=== PATIENT | male | born 1960 | race African-American/Black ===

== ENCOUNTER 2021-08-18 10:01 | Inpatient (IN) | payer MEDICAID ==
[~2021-08-18] VITALS: Ht 190.5 cm; Wt 72.8 kg
[2021-08-18] MEDS ORDERED: MORPHINE SULFATE 4 MG/ML CPJ (NOT FOR IM USE) IV STA (11:09)
[2021-08-18] MEDS ORDERED: ONDANSETRON HCL 4MG/2ML INJ IV STA (11:09)
[2021-08-18] MEDS ORDERED: SODIUM CHLORIDE 0.9% 1,000 ML IV ONE (11:15)
[2021-08-18 12:12] LABS: BASOPHILS % 1.3 % (0.0-2.0); EOSINOPHILS % 0.2 % (0.0-5.0); HEMATOCRIT. 41.7 % (42.0-52.0); LYMPHOCYTES % 9.2 % (20.0-50.0); MEAN CORPUSCULAR HEMOGLOBIN 32.8 pg (28.0-32.0); MEAN CORPUSCULAR VOLUME 97.4 fL (80.0-94.0); MEAN PLATELET VOLUME 8.2 fl (7.4-10.4); MONOCYTES % 6.8 % (2.0-8.0); NEUTROPHILS % 82.5 % (40.0-76.0); PLATELET 475 x1000/uL (130-400); RED BLOOD CELL COUNT 4.28 mill/uL (4.7-6.1); RED CELL DISTRIBUTION WIDTH 13.7 % (11.6-14.6)
[2021-08-18 12:19] LABS: CHLORIDE 106 mEq/L (98-107)
[2021-08-18 13:12] LABS: CLARITY URINE TURBID (CLEAR); COLOR URINE DARK YELLOW (YELLOW); KETONES URINE TRACE (NEGATIVE); LEUKOCYTE ESTERASE URINE NEGATIVE (NEGATIVE); NITRITE URINE NEGATIVE (NEGATIVE); OCCULT BLOOD URINE NEGATIVE (NEGATIVE); PROTEIN URINE 2+ (NEGATIVE); SPECIFIC GRAVITY URINE 1.028 (1.005-1.030); UROBILINOGEN URINE 0.2 E.U./dL (0.2-1.0)
[2021-08-18] MEDS ORDERED: SODIUM CHLORIDE 0.9% 1000ML BAG (SEPSIS BOLUS) IV NR (13:30)
[2021-08-18] MEDS ORDERED: PIPERACILLIN/TAZ 3.375G PREMIX 50 ML IV SCH (13:30)
[2021-08-18] MEDS ORDERED: IOHEXOL-300 100 ML BOTTLE ONE (13:42)
[2021-08-18] MEDS ORDERED: MAGNESIUM/ALUMINUM HYDROXIDE/SIMETHICONE 30ML UDC PO PRN (15:30)
[2021-08-18] MEDS ORDERED: GUAIFENESIN 200MG/10ML SUGAR FREE UDC PO PRN (15:30)
[2021-08-18] MEDS ORDERED: ONDANSETRON HCL 4MG/2ML INJ IV PRN (15:30)
[2021-08-18] MEDS ORDERED: HYDROCODONE/ACETAMINOPHEN 5/325MG TABLET PO PRN (15:30)
[2021-08-18] MEDS ORDERED: ACETAMINOPHEN 325MG TABLET PO PRN (15:30)
[2021-08-18] MEDS ORDERED: NALOXONE HCL 0.4MG/ML VIAL IV PRN (15:45)
[2021-08-18] MEDS: CLONIDINE 0.1MG TABLET PO PRN (17:00)
[2021-08-18] MEDS ORDERED: HYDRALAZINE 20MG/ML VIAL IV PRN (18:50)
[2021-08-18 19:32] LABS: HEPATITIS B SURFACE ANTIGEN NEGATIVE
[2021-08-18] MEDS ORDERED: THIAMINE HCL 100 MG in SODIUM CHLORIDE 0.9% 49 ML IV NR (20:00)
[2021-08-18] MEDS: FOLIC ACID 1MG TABLET PO SCH (20:48)
[2021-08-19 00:48] VITALS: BP 147/95
[2021-08-19 05:51] LABS: HEMATOCRIT. 40.7 % (42.0-52.0); HEMOGLOBIN. 13.5 g/dL (14.0-18.0); MEAN CORPUSCULAR VOLUME 99.2 fL (80.0-94.0); MEAN PLATELET VOLUME 8.2 fl (7.4-10.4); PLATELET 437 x1000/uL (130-400); RED CELL DISTRIBUTION WIDTH 13.9 % (11.6-14.6)
[2021-08-19 05:52] LABS: CHLORIDE 109 mEq/L (98-107)
[2021-08-19 05:58] LABS: PHOSPHORUS 2.7 mg/dL (2.5-4.9)
[2021-08-19 08:00] VITALS: BP 119/86
[2021-08-19 08:31] LABS: *AMPHETAMINES SCREEN URINE NEGATIVE (NEGATIVE)
[2021-08-19 08:32] LABS: *BARBITURATES SCREEN URINE NEGATIVE (NEGATIVE); *BENZODIAZEPINES SCREEN URINE NEGATIVE (NEGATIVE); *COCAINE SCREEN URINE NEGATIVE (NEGATIVE); METHADONE URINE SCREEN NEGATIVE (NEGATIVE); OPIATES URINE SCREEN PRESUMTIVE POSITIVE (NEGATIVE)
[2021-08-19 08:33] LABS: CANNABINOID URINE SCREEN NEGATIVE (NEGATIVE); PHENCYCLIDINE URINE SCREEN NEGATIVE (NEGATIVE)
[2021-08-19] MEDS: THIAMINE HCL 100MG TABLET PO SCH (08:47)
[2021-08-19] MEDS: FOLIC ACID 1MG TABLET PO SCH (08:48)
[2021-08-19] MEDS: ACETAMINOPHEN 325MG TABLET PO PRN (08:48)
[2021-08-19] MEDS ORDERED: POTASSIUM CHLORIDE 20MEQ TABLET SR PO NR (09:30)
[2021-08-19] MEDS ORDERED: ROCURONIUM BROMIDE 10MG/ML VIAL 5ML IV ONE (10:44)
[2021-08-19] MEDS ORDERED: GLYCOPYRROLATE 0.2 MG/ML 2ML VIAL ONE (10:44)
[2021-08-19] MEDS ORDERED: PROPOFOL 200MG/20ML VIAL IV ONE (10:44)
[2021-08-19] MEDS ORDERED: MIDAZOLAM HCL 2 MG/2 ML VIAL ONE ×2 (10:44→12:13)
[2021-08-19] MEDS ORDERED: FENTANYL CITRATE/PF 50MCG/ML 2ML VIAL ONE ×2 (10:44→12:12)
[2021-08-19] MEDS ORDERED: NEOSTIGMINE METHYLSULFATE 1MG/ML 10 ML VIAL ONE (10:44)
[2021-08-19] MEDS ORDERED: MORPHINE SULFATE 2 MG/ML CPJ (NOT FOR IM USE) IV PRN ×2 (10:45→12:00)
[2021-08-19] MEDS ORDERED: ONDANSETRON HCL 4MG/2ML INJ IV PRN ×2 (10:45→11:15)
[2021-08-19] MEDS ORDERED: MORPHINE SULFATE 4 MG/ML CPJ (NOT FOR IM USE) IV PRN (10:45)
[2021-08-19] MEDS ORDERED: METRONIDAZOLE 500 MG PREMIX 100 ML IV SCH (10:45)
[2021-08-19] MEDS ORDERED: SKIN ADHESIVE 0.7 GM EA TOP ONE (10:46)
[2021-08-19] MEDS ORDERED: BUPIVACAINE HCL/PF 0.5% (5MG/ML) 10ML ONE (10:46)
[2021-08-19] MEDS ORDERED: DEXAMETHASONE 4MG/ML 1ML VIAL ONE (10:56)
[2021-08-19] MEDS ORDERED: ONDANSETRON HCL 4MG/2ML INJ ONE (10:56)
[2021-08-19] MEDS ORDERED: HYDROMORPHONE HCL/PF 2MG/ML CPJ IV PRN (11:15)
[2021-08-19] MEDS ORDERED: MEPERIDINE HCL/PF 25MG/ML CPJ IV PRN (11:15)
[2021-08-19] MEDS ORDERED: LABETALOL 5MG/ML SYR 20 MG/4 ML SYRINGE IV PRN (11:15)
[2021-08-19 13:45] VITALS: BP 115/80
[2021-08-19] MEDS: GABAPENTIN 100MG CAPSULE PO SCH ×2 (14:30→21:15)
[2021-08-19 15:45] LABS: PLATELET ESTIMATE SLIGHTLY INCREASED
[2021-08-19 16:00] VITALS: BP 124/84
[2021-08-19] MEDS: DEXT 5%/0.45% NACL KCL 20MEQ/L 1,000 ML IV SCH (16:26)
[2021-08-19] MEDS: CEFAZOLIN 1000MG PREMIX 50 ML IV SCH ×2 (16:26→23:46)
[2021-08-19 20:00] VITALS: BP 132/84
[2021-08-19] MEDS: FAMOTIDINE 20MG/2ML VIAL IV SCH (21:15)
[2021-08-20] VITALS: BP 126/88
[2021-08-20] MEDS: DEXT 5%/0.45% NACL KCL 20MEQ/L 1,000 ML IV SCH ×3 (02:01→21:03)
[2021-08-20 04:00] VITALS: BP 137/88
[2021-08-20] MEDS: GABAPENTIN 100MG CAPSULE PO SCH ×3 (05:49→21:03)
[2021-08-20] MEDS: CEFAZOLIN 1000MG PREMIX 50 ML IV SCH (07:06)
[2021-08-20 08:00] VITALS: BP 137/86
[2021-08-20] MEDS: FOLIC ACID 1MG TABLET PO SCH (08:29)
[2021-08-20] MEDS: THIAMINE HCL 100MG TABLET PO SCH (08:29)
[2021-08-20] MEDS: FAMOTIDINE 20MG/2ML VIAL IV SCH ×2 (08:34→21:03)
[2021-08-20 12:00] VITALS: BP 144/94
[2021-08-20] MEDS: ACETAMINOPHEN 325MG TABLET PO PRN ×2 (12:31→21:25)
[2021-08-20 16:00] VITALS: BP 143/96
[2021-08-20 16:21] LABS: HEMATOCRIT. 32.3 % (42.0-52.0); HEMOGLOBIN. 11.1 g/dL (14.0-18.0); MEAN CORPUSCULAR VOLUME 104.5 fL (80.0-94.0); MEAN PLATELET VOLUME 8.4 fl (7.4-10.4); PLATELET 326 x1000/uL (130-400); RED BLOOD CELL COUNT 3.09 mill/uL (4.7-6.1); RED CELL DISTRIBUTION WIDTH 13.9 % (11.6-14.6)
[2021-08-20 16:41] LABS: CHLORIDE 113 mEq/L (98-107)
[2021-08-20 19:11] LABS: PLATELET ESTIMATE NORMAL
[2021-08-20 20:00] VITALS: BP 159/92
[2021-08-21] VITALS: BP 146/94
[2021-08-21 04:50] VITALS: BP 164/103
[2021-08-21] MEDS: CLONIDINE 0.1MG TABLET PO PRN (04:52)
[2021-08-21] MEDS: GABAPENTIN 100MG CAPSULE PO SCH ×3 (06:00→13:21)
[2021-08-21 07:12] LABS: CHLORIDE 107 mEq/L (98-107)
[2021-08-21 08:00] VITALS: BP 139/90
[2021-08-21] MEDS: FAMOTIDINE 20MG/2ML VIAL IV SCH (08:55)
[2021-08-21] MEDS: FOLIC ACID 1MG TABLET PO SCH (08:55)
[2021-08-21] MEDS: THIAMINE HCL 100MG TABLET PO SCH (08:55)
[2021-08-21] MEDS ORDERED: POTASSIUM CHLORIDE 20MEQ/PACKET PO NR (10:15)
[2021-08-21 10:37] LABS: HEMATOCRIT. 31.4 % (42.0-52.0); HEMOGLOBIN. 10.8 g/dL (14.0-18.0); MEAN CORPUSCULAR HEMOGLOBIN 34.5 pg (28.0-32.0); MEAN PLATELET VOLUME 9.8 fl (7.4-10.4); PLATELET 195 x1000/uL (130-400); RED BLOOD CELL COUNT 3.14 mill/uL (4.7-6.1); RED CELL DISTRIBUTION WIDTH 13.8 % (11.6-14.6)
[2021-08-21 12:00] VITALS: BP 141/102
[2021-08-21 19:36] LABS: PLATELET ESTIMATE NORMAL
== END 2021-08-21 16:12 | disposition home or self-care (01) | DRG 710 ==
LOC: ER 10:10 → 8WST 14:16 → SUPCPDRO 15:12 → ENRESERV 21:28
PROVIDERS: ADMIT Internal Medicine; ATTEND Internal Medicine
PROC: 0D9670Z Drainage of Stomach with Drainage Device, Via Natural or Artificial Opening (ICD-10-PCS; 2021-08-18)
PROC: 0YU60JZ Supplement Left Inguinal Region with Synthetic Substitute, Open Approach (ICD-10-PCS; principal; 2021-08-19)
DX: A41.9 Sepsis, unspecified organism (principal); R18.8 Other ascites; K40.30 Unilateral inguinal hernia, with obstruction, without gangrene, not specified as recurrent; R17 Unspecified jaundice; D53.9 Nutritional anemia, unspecified; G62.9 Polyneuropathy, unspecified; I10 Essential (primary) hypertension; Z20.822 Contact with and (suspected) exposure to COVID-19; N28.1 Cyst of kidney, acquired; R50.82 Postprocedural fever; Z87.891 Personal history of nicotine dependence
CPT/HCPCS: 36415; 71045; 74177; 80048; 80053; 80076; 80305; 81003; 83605; 83735; 84100; 84145; 85025; 86705; 86709; 86803; 87340; 87426; 88302; 99291; C1781; J0360; J0690; J1100; J2250; J2270; J2405; J2543; J2704; J2710; J3010; J3411; J3490; J7030; Q9967